=== PATIENT | male | born 1980 | race African-American/Black ===

== ENCOUNTER 2016-09-08 12:56 | Emergency (ER) | payer SELFPAY | END 2016-09-08 13:46 | disposition home or self-care (01) | LOC: NAV ERS 12:56 | DX: H60.93 Unspecified otitis externa, bilateral (principal); J30.9 Allergic rhinitis, unspecified; M26.609 Unspecified temporomandibular joint disorder, unspecified side; F17.210 Nicotine dependence, cigarettes, uncomplicated | CPT/HCPCS: 99282 ==

== ENCOUNTER 2017-02-08 13:33 | Emergency (ER) | payer SELFPAY ==
[2017-02-08] MEDS ORDERED: Ketorolac Tromethamine 60 MG/2 ML VIAL ONE (14:40)
== END 2017-02-08 15:20 | disposition home or self-care (01) ==
LOC: NAV ERS 13:33
DX: I10 Essential (primary) hypertension (principal); Z87.891 Personal history of nicotine dependence
CPT/HCPCS: 96372; J1885

== ENCOUNTER 2017-09-09 12:37 | Emergency (ER) | payer SELFPAY ==
[2017-09-09] MEDS ORDERED: Ketorolac Tromethamine 60 MG/2 ML VIAL ONE (13:01)
== END 2017-09-09 13:05 | disposition home or self-care (01) ==
LOC: NAV ERS 12:37
DX: H65.23 Chronic serous otitis media, bilateral (principal); I10 Essential (primary) hypertension; Z87.891 Personal history of nicotine dependence
CPT/HCPCS: 96372; J1885